=== PATIENT | male | born 1990 | race African-American/Black ===

== ENCOUNTER 2018-09-22 23:17 | Emergency (ER) | payer BC ==
[~2018-09-22] VITALS: Ht 188 cm; Wt 81.7 kg
[2018-09-22] MEDS ORDERED: ACCUNEB SO1.25 MG/1 INH (23:28)
[2018-09-23] MEDS ORDERED: PREDNISONE50 MG PO (00:14)
[2018-09-23] MEDS ORDERED: PROAIR HFA8.5 GM INH (00:14)
[2018-09-23 00:51] VITALS: BP 107/68
== END 2018-09-23 00:51 | disposition home or self-care (01) ==
LOC: M.ERS 23:17
DX: J45.901 Unspecified asthma with (acute) exacerbation (principal); F17.210 Nicotine dependence, cigarettes, uncomplicated

== ENCOUNTER 2019-04-23 19:23 | Emergency (ER) | payer OTHER ==
[~2019-04-23] VITALS: Ht 193 cm; Wt 79.4 kg
[~2019-04-23 19:23] MED LIST: ACCUNEB SO1.25 MG/1 INH; PREDNISONE50 MG PO; PROAIR HFA8.5 GM INH
[2019-04-23 20:47] VITALS: BP 129/69
== END 2019-04-23 20:48 | disposition home or self-care (01) ==
LOC: M.ERS 19:23
DX: S61.210A Laceration without foreign body of right index finger without damage to nail, initial encounter (principal); J45.909 Unspecified asthma, uncomplicated; F17.210 Nicotine dependence, cigarettes, uncomplicated; W26.8XXA Contact with other sharp object(s), not elsewhere classified, initial encounter; Y93.89 Activity, other specified; Y92.89 Other specified places as the place of occurrence of the external cause; Y99.8 Other external cause status